=== PATIENT | female | born 1965 | race Caucasian/White ===

== ENCOUNTER → 2020-03-31 | Outpatient (CLI) | payer OTHER, SELFPAY ==
--- NOTE | 2020-03-31 16:02 | BI_ITS ---
MAMMOGRAPHY - BILATERAL SCREENING REASON FOR EXAM: Female, 54 years old. Routine annual screening examination. PERTINENT HISTORY: Aunt with breast cancer. TECHNIQUE: Digital bilateral breast helen (3D mammographic acquisition) in the CC and MLO projections. 2-D mediolateral oblique (MLO) and craniocaudad (CC) views of both breasts were obtained. CAD: Full Field Digital Mammography with Computer Added Detection was performed. COMPARISON: No comparison mammograms available at this time. If any prior films become available, an addendum to this report can be generated. FINDINGS: Breast Composition: There are scattered areas of fibroglandular density. There are no dominant masses or suspicious calcifications. No other significant abnormalities are identified. BI/SCREEN MAMM (CAD) W/HELEN BILAT IMPRESSION: Negative screening mammogram. Yearly followup mammogram recommended. (A) ASSESSMENT CATEGORY: BIRADS Category 1: Negative. A letter regarding these results will be sent to the patient by the facility within 30 days. Approximately 10% of breast cancers are not detected by mammography. A normal mammogram should not delay biopsy of a clinically suspicious abnormality. [id number] Electronically Signed: Alexis Mckoy, at 8:47 EDT , Service support ,
== END | disposition home or self-care (01) ==
LOC: OPBI 15:59
PROVIDERS: PCP Internal Medicine; Referring Provider Internal Medicine; Visit Provider Internal Medicine
DX: Z12.31 Encounter for screening mammogram for malignant neoplasm of breast (principal)
CPT/HCPCS: 77063; 77067

== ENCOUNTER → 2023-08-17 | Outpatient (CLI) | payer BC, SELFPAY ==
--- NOTE | 2023-08-17 14:43 | NEURO ---
NCS and/or EMG Patient Report Ordering Doctor: Faith Salcido DATE OF SERVICE: 08/17/23 Clinical Summary: 58 year old female presenting with complaints of right hand/wrist numbness and tingling including the lateral and medial fingers. She also endorses pain and/or numbness that radiates to the elbow and shoulder. This EMG/NCS was performed to evaluate for right median mononeuropathy (carpal tunnel syndrome), right ulnar mononeuropathy, and/or cervical radiculopathy. Nerve Conduction Studies Summary: The right ulnar-D5 SNAP amplitude was relatively reduced compared to other sensory responses but still within normal range for the patient's age. Otherwise, other nerve conduction studies of the right upper extremity were normal. Needle Examination Summary: Needle examination of select muscles of the right upper extremity was normal. Impression: There is no electrodiagnostic evidence of a right median mononeuropathy or cervical radiculopathy. Multi Select Codes Neurology Neurology Interp Codes: 95676-97 Musc test done w/n test comp (interp) (1) and 77535-74 Nrv cndj test 7-8 studies (interp)
== END | disposition home or self-care (01) ==
LOC: PSN 13:45
PROVIDERS: PCP Internal Medicine; Referring Provider Internal Medicine; Visit Provider Internal Medicine
DX: M25.531 Pain in right wrist (principal)
CPT/HCPCS: 95886; 95910

== ENCOUNTER → 2024-11-14 | Outpatient (CLI) | payer BC, SELFPAY | END | disposition home or self-care (01) | LOC: PSN 13:41 | PROVIDERS: PCP Internal Medicine; Referring Provider Internal Medicine; Visit Provider Internal Medicine | DX: R00.2 Palpitations (principal) | CPT/HCPCS: 93225; 93226 ==